=== PATIENT | male | born 1975 | race African-American/Black ===

== ENCOUNTER → 2020-10-31 16:21 | Outpatient (CLI) | payer OTHER, SELFPAY ==
--- NOTE | 2020-10-31 16:22 | DI.RAD.S_ITS ---
PROCEDURE: XR HIP W PEL IF DONE RT 2V INDICATIONS: right femur lucent lesion on CT TECHNIQUE: 2 views of the hip were acquired. COMPARISON: None. FINDINGS: Bones: No fractures or dislocations. Possible 3.0 cm sclerotic focus is seen on the frontal view over the proximal femur just inferior to the greater trochanter.. The visualized pelvic ring appears intact. Mild joint narrowing with periarticular osteophyte formation of the right hip joint. Soft tissues: No suspicious soft tissue calcifications or masses. IMPRESSION: Possible 3 cm sclerotic lesion involving the proximal right femur just inferior to the right greater trochanter which is seen on the frontal view. If indicated, MRI or bone scan could be performed for further assessment Dictated by: Willy Krishna [facility] Interpreted: Madelaine Thomas MD on 10/31/2020 at 17:03 Transcribed by: ASTRID on 10/31/2020 at 17:05 Approved by: Madelaine Thomas M.D. on 10/31/2020 at 17:08
== END ==
PROVIDERS: Referring Provider Internal Medicine Hematology & Oncology; Visit Provider Internal Medicine Hematology & Oncology
DX: M89.9 Disorder of bone, unspecified (principal)
CPT/HCPCS: 73502

== ENCOUNTER → 2020-11-20 07:34 | Outpatient (CLI) | payer OTHER, SELFPAY ==
--- NOTE | 2020-11-20 07:36 | DI.NM.S_ITS ---
PROCEDURE: NM BONE SCAN WHOLE BODY RADIOPHARMACEUTICAL: 21.0 mCi Tc-99m MDP IV. INDICATIONS: abnormal sclerotic bone lesion rightr demur TECHNIQUE: Delayed whole-body scintigrams were obtained approximately 3-4 hours after intravenous injection of radiotracer. Anterior and posterior views were acquired from vertex to feet. COMPARISON: [facility], [place], XR HIP W PEL IF DONE RT 2V, 10/31/2020, 16:24. FINDINGS: There is abnormally increased activity in the right femoral neck, correlating with sclerotic bone lesion seen on the comparison x-ray. Foci of increased uptake are also seen in the left occiput, T11 at midline, posterior left 10th rib. The scintigraphic findings are suspicious for osseous metastatic disease. Mildly increased uptake in proximal tibia bilaterally just below the knee, right greater than left. There are foci of periarticular activity involving shoulders, wrists, hands, hips, knees, left ankle and feet, compatible with osteoarthritic changes. IMPRESSION: 1. The scintigraphic findings are suspicious for metastatic disease. There are foci of abnormal uptake involving the left occiput, T11 vertebra, left 10th rib and proximal right femur. 2. Foci of increased uptake in the proximal tibia bilaterally are indeterminate. Recommend radiographic correlation. Dictated by: Lakisha Arreola M.D. on 11/20/2020 at 12:52 Approved by: Lakisha Arreola M.D. on 11/20/2020 at 12:58
== END ==
PROVIDERS: Referring Provider Internal Medicine Hematology & Oncology; Visit Provider Internal Medicine Hematology & Oncology
DX: M89.9 Disorder of bone, unspecified (principal)
CPT/HCPCS: 78306; A9503

== ENCOUNTER → 2020-12-02 09:43 | Outpatient (CLI) | payer OTHER, SELFPAY ==
--- NOTE | 2020-12-02 10:25 | DI.CT.S_ITS ---
PROCEDURE: CT ABDOMEN PELVIS W CON INDICATIONS: bone lytic lesion, right femur TECHNIQUE: After the administration of intravenous contrast, axial sections acquired from the lung bases to the pubic symphysis. Coronal and sagittal reformats were performed. For radiation dose reduction, the following was used: automated exposure control, adjustment of mA and/or kV according to patient size. COMPARISON: [facility], [place], NM BONE SCAN WHOLE BODY, 11/20/2020, 11:04. [facility], CR, XR HIP W PEL IF DONE RT 2V, 10/31/2020, 16:24. FINDINGS: Image quality: Excellent. Lung bases: Unremarkable. Heart: No significant findings. ABDOMEN: Liver: Mildly inhomogeneous hepatic steatosis. No discrete hepatic masses. Gallbladder: Unremarkable. Biliary ducts: Unremarkable. Pancreas: Unremarkable. Spleen: Unremarkable. Adrenal Glands: Unremarkable. Kidneys and Ureters: Unremarkable. Stomach and Bowel: Stomach, small bowel loops, and colon are unremarkable. There is a large amount of stool in colon. Appendix is normal. Peritoneum: No abnormal intraperitoneal fluid. No free air. Ventral Wall: No hernias. Abdominal Nodes: No retroperitoneal or mesenteric adenopathy by size criteria. Vessels: Aorta and inferior vena cava are normal in size. PELVIS: Pelvic Organs: Unremarkable. Bladder: Unremarkable. Pelvic Nodes: No enlarged lymph nodes. Miscellaneous: No hernias are seen. Bones: There is a mixed lytic and sclerotic lesion in the right femoral neck, correlating with abnormal x-ray and increased uptake on bone scan. IMPRESSION: 1. A mixed lytic and blastic lesion is present in the left femoral neck, suspicious for metastasis. This correlates with abnormal x-ray and focal increased uptake on bone scan. 2. No definitive correlate on CT with the abnormal uptake in the posterior right 10th rib seen on bone scan. 3. No lymphadenopathy in abdomen or pelvis. Dictated by: Lakisha Arreola M.D. on 12/02/2020 at 13:50 Approved by: Lakisha Arreola M.D. on 12/02/2020 at 17:51
== END ==
PROVIDERS: Referring Provider Internal Medicine Hematology & Oncology; Visit Provider Internal Medicine Hematology & Oncology
DX: R94.8 Abnormal results of function studies of other organs and systems (principal); M89.9 Disorder of bone, unspecified
CPT/HCPCS: 74177

== ENCOUNTER → 2021-01-07 14:03 | Outpatient (CLI) | payer OTHER, SELFPAY ==
--- NOTE | 2021-01-07 | DI.MRI.S_ITS ---
PROCEDURE: MR FEMUR RT WO/W CON INDICATIONS: Other specified disorders of bone, thigh TECHNIQUE: Noncontrast coronal T1 spin echo and STIR, sagittal T1 spin echo with fat saturation and STIR, axial T1 spin echo and T2 fast spin echo with fat saturation. After the administration of contrast, axial/sagittal/coronal T1 spin echo with fat saturation through the right femur. COMPARISON: [facility], [place], [place] BONE SCAN WHOLE BODY, 11/20/2020, 11:04. [facility] [place], [place], XR FEMUR 2+ VIEWS RIGHT, 12/18/2020, 15:33. FINDINGS: Image quality: Excellent. Bones: There is no marrow edema. No fracture or dislocation. No evidence of avascular necrosis of femoral head. Heterogeneously T2 hyperintense and T1 hypointense structure with fairly well-defined margin is noted involving medullary space of posterior and distal femoral neck near intertrochanteric region . This lesion measures up to 2.5 x 2.2 x 2.7 cm in its largest AP, transverse and craniocaudal dimensions. There is no surrounding marrow edema. No adjacent cortical erosion or destruction. No periosteal reaction. After IV contrast infusion, there is fairly homogeneous enhancement throughout this lesion. No additional intraosseous lesion is seen within the right femur. No fracture or dislocation. Soft tissues: No soft tissue masses are visualized. The scanned muscles demonstrate normal overall bulk and internal signal. Subcutaneous tissues appear normal as well. No abnormal soft tissue enhancement. IMPRESSION: 1. Mildly lobulated slightly heterogeneously T1 hypointense and T2 hyperintense structure within posterior medullary space of distal right femoral neck/intertrochanteric region and show fairly homogeneous contrast enhancement. No surrounding edema or periosteal reaction is seen. No cortical destruction is noted. No associated soft tissue mass. Given nuclear medicine bone scan finding of increased uptake within this lesion as well as additional areas of increased uptake within skeletal system, finding is concerning for focal metastatic lesion in this area although there is no definite source of primary is noted at this time. 2. No additional intraosseous lesion is seen. No associated soft tissue mass. No additional area of abnormal contrast enhancement. No intramuscular mass or fluid collection. Dictated by: Ranjan Valdez M.D. on 01/07/2021 at 16:22 Approved by: Ranjan Valdez M.D. on 01/07/2021 at 16:29
== END ==
PROVIDERS: Referring Provider Orthopaedic Surgery Foot and Ankle Surgery; Visit Provider Orthopaedic Surgery Foot and Ankle Surgery
DX: M89.8X5 Other specified disorders of bone, thigh (principal)
CPT/HCPCS: 73720; A9579

== ENCOUNTER → 2021-10-06 09:15 | Outpatient (CLI) | payer OTHER, SELFPAY ==
[2021-10-06 11:10] LABS: COVID19 -Nasal RAPID Negative (Negative)
== END ==
PROVIDERS: Visit Provider Surgery
DX: Z01.812 Encounter for preprocedural laboratory examination (principal); Z20.822 Contact with and (suspected) exposure to COVID-19
CPT/HCPCS: 87635; C9803

== ENCOUNTER 2021-10-07 06:40 | Day surgery (SDC) | payer OTHER, SELFPAY ==
[2021-10-07] VITALS (7 sets, daily range): BP systolic 99–152; BP diastolic 55–94; PULSE 72–106; RESP 13–17; TEMP 36.1–37; O2SAT 93–98; BMI 32.5
[2021-10-07] MEDS: LACTATED RINGERS 1,000 ML 100 ML IV (07:19)
--- NOTE | 2021-10-07 07:30 | SUR.OPER ---
Supine on padded OR bed, head on pillow, arms secured on padded arm boards at <90 degrees abduction, legs uncrossed, safety belt at thigh, tape over blanket over lower legs.
--- NOTE | 2021-10-07 07:40 | PM.HP.1 ---
History of Present Illness History of Present Illness Date Patient Seen: 10/07/21 Time Patient Seen: 07:41 Chief complaint: SDC Narrative: 46 y.o man here for elective umbilical hernia repair. No interval changes in health. Patient History Medical History Hyperlipidemia Hypertension Obstructive sleep apnea Surgical History Hx of right knee surgery Family & Social History Social History: household members spouse,family Tobacco & Substance use: Smoking Status Never smoker alcohol intake current alcohol intake frequency holiday/special occasion Substance Use Type does not use Meds Home Medications and Allergies Home Medications Medication Instructions Recorded Confirmed Type lisinopril 40 mg tablet 40 mg PO DAILY 10/16/20 10/07/21 History celecoxib 200 mg capsule 200 mg PO DAILY 09/03/21 10/07/21 History Allergies Allergy/AdvReac Type Severity Reaction Status Date / Time No Known Drug Allergies Allergy Verified 09/03/21 10:03 Exam Vital Signs (past 8 hours): - 10/07/21 07:09 Temperature 97 F L Pulse Rate 80 Respiratory Rate 15 Blood Pressure 152/91 H Pulse Oximetry 98 Oxygen Delivery Method Room Air Narrative Exam Narrative: Gen-Adult man alert and oriented Chest-Non labored resp Abdomen-soft Assessment & Plan Assessment & Plan narrative: 46 y.o man here for elective umbilical hernia repair. Questions answered. Will proceed. Time Spent With Patient Critical Care time: I spent a total of [] minutes of critical care time on this patient's care today; this time is exclusive of procedural time.
[2021-10-07] MEDS: CEFAZOLIN 2 GM/20 ML SYRINGE IV (08:45)
[2021-10-07] MEDS: BUPIVACAINE 0.5% (PF) VIAL 30 ML INJ (08:57)
--- NOTE | 2021-10-07 09:35 | P.OP_ITS ---
Operative Date/Time/Diagnoses Date of procedure: 10/07/21 Time of procedure: 09:38 Pre-op diagnosis: umbilical hernia reducible Post-op diagnosis: same Procedure & Clinicians Procedure: Open umbilical hernia repair Same procedure as scheduled: Yes Indications: Symptomatic reducible umbilical hernia Surgeon: Kevin Ferrera Anesthesia Type: General Operative Notes Findings: Fat containing umbilical hernia fascial defect 2 cm Estimated Blood Loss (mL): 10 Procedure in detail: Patient was brought to the operating room placed supine on the table. Bilateral lower extremity compression devices were applied. General anesthesia was induced and they were intubated with an endotracheal tube. They received 2 g of Ancef prior to skin incision. They were prepped and draped in sterile fashion. A time-out was performed. A curvilinear incision was made inferior to the umbilicus. The subcutaneous tissues were divided. The umbilical hernia was id entified and the hernia sac was dissected off the umbilical skin and circumferentially off of the fascia defect. The hernia sac was sharply opened and contained viable omentum. The omentum was reduced back into the abdomen. Using blunt dissection I carefully carefully freed the hernia sac from beneath the fascia defect in order to accomodate the mesh. The fascia defect was 1.5 cm in maximal diameter. A Bard Ventralex ST hernia patch 4 cm was inserted beneath the fascia defect and above the peritoneum in a sublay position. The mesh was anchored in multiple locations using Ethibond suture to the fascia and the fascial defect was closed over the mesh. The umbilical skin was tacked to the subcutaneous tissues and then the remainder of the subcutaneous tissues were reapproximated using 3 0 Vicry,l skin closed with 4 0 Monocryl followed by the application of Dermabond and Steri-Strips. Sponge instrument count at the end of the operation was correct. Patient tolerated procedure well was extubated and transferred to postoperative care unit in stable condition. Complications: none Post-operative Condition: stable Disposition: same day surgery
[2021-10-07] MEDS: OXYCODONE IR 5 MG TABLET PO (09:39)
[2021-10-07] MEDS: ACETAMINOPHEN 325 MG TABLET 650 MG PO (09:40)
--- NOTE | 2021-10-07 10:07 | SUR.PHASEII ---
Discharge instructions reviewed with pt and he verbalized understanding.
== END 2021-10-07 10:10 | disposition home or self-care (01) ==
PROVIDERS: Referring Provider Surgery; Visit Provider Surgery
PROC: (CPT 49585; principal; 2021-10-07 07:45)
DX: K42.9 Umbilical hernia without obstruction or gangrene (principal); I10 Essential (primary) hypertension; E78.5 Hyperlipidemia, unspecified; G47.33 Obstructive sleep apnea (adult) (pediatric)
CPT/HCPCS: 49585; 82962; J0690; J1100; J1885; J2405; J2704; J3010